=== PATIENT | male | born 1955 | race Caucasian/White ===

== ENCOUNTER → 2021-01-30 08:26 | Outpatient (CLI) | payer OTHER, SELFPAY ==
[2021-01-31 04:00] LABS: SARS-CoV-2 RNA PCR Positive
== END ==
PROVIDERS: PCP Family Medicine; Visit Provider Family Medicine
DX: U07.1 COVID-19 (principal); R05 Cough
CPT/HCPCS: C9803; U0003; U0005

== ENCOUNTER 2023-07-27 00:20 | Day surgery (SDC) | payer MEDICARE, OTHER, SELFPAY ==
[2023-07-04 11:08] VITALS: BMI 29.3
--- NOTE | 2023-07-25 12:10 | SUR.PREOP ---
Patient called regarding upcoming procedure. Reviewed preop instructions, appointment times, and procedure prep.
--- NOTE | 2023-07-26 16:28 | PM.HPGS ---
History of Present Illness History of Present Illness Consent: Risks, benefits, and alternatives have been discussed and questions answered. Patient agrees to proceed with procedure. Chief complaint: Family history colon cancer Narrative: Kishore Blue is a 68 year old male Referred for colon cancer screening. He has a family history of colon cancer Review of Systems Review of Systems: All systems reviewed & are unremarkable except as noted in HPI and below PMFSH Past Medical History Medical History Anemia, iron deficiency Anxiety Depression Gastro-esophageal reflux disease without esophagitis IFG (impaired fasting glucose) KATTY (obstructive sleep apnea) Pure hypercholesterolemia, unspecified Surgical History Surgical History H/O right wrist surgery S/P hip arthroscopy left Social History Social History Smoking status: Former smoker Tobacco type: smokeless tobacco Smokeless tobacco user: chewing tobacco Second hand tobacco smoke exposure: No Alcohol intake: current Drinks per week: 4 Alcohol use details: occasional Substance use: never Substance use type: does not use Living arrangements: with family Occupation/Education: occupation Gender identity (if verbalized by the patient): Male Spiritual care concerns: No Meds Home Medications and Allergies Home Medications Medication Instructions Recorded Confirmed Type ferrous sulfate 325 mg (65 mg 325 mg PO DAILY 04/26/19 07/04/23 History iron) tablet (iron) krill oil 350 mg-om-3 90 mg-dha 24 1 cap PO DAILY 04/26/19 07/04/23 History mg-epa 50 mg-phospholipids capsule sertraline 100 mg tablet (Zoloft) 100 mg PO DAILY #90 tabs 12/22/21 07/04/23 Rx Lactobacillus 1 cap PO DAILY 07/04/23 07/04/23 History acidophilus-Bifidobac.animalis 2.5 billion cell capsule (Daily Probiotic) atorvastatin 20 mg tablet 20 mg PO DAILY 07/04/23 07/04/23 History cholecalciferol (vitamin D3) 25 25 mcg PO DAILY 07/04/23 07/04/23 History mcg (1,000 unit) tablet (Vitamin D3) mecobalamin (vitamin B12) 1,000 1,000 mcg PO DAILY 07/04/23 07/04/23 History mcg chewable tablet pqnjbuin-wjwqevas-fbzqc acid 400 1 tablet PO DAILY 07/04/23 07/04/23 History mcg-vit K 20 mcg-lycop 300 mcg tablet zinc gluconate-vitamin C 6.4 mg-60 1 tablet PO DAILY 07/04/23 07/04/23 History mg chewable tablet Allergies Allergy/AdvReac Type Severity Reaction Status Date / Time No Known Allergies Allergy Verified 07/04/23 11:08 Exam Const: General: alert Orientation/consciousness: patient oriented x3 Resp: Auscultation: clear to auscultation bilaterally Cardio: Rhythm: regular rhythm GI: GI Palp: Yes Soft to palpation and No Tenderness to palpation present (GI) Neuro: General: patient oriented x3 Assessment and Plan Assessment and plan (1) Colon cancer screening: Code(s): Z12.11 - Encounter for screening for malignant neoplasm of colon Status: Acute Assessment and Plan: Colonoscopy with possible biopsy or polypectomy or cautery or injection of substances.
[2023-07-27 09:54] VITALS: BP 139/81; PULSE 68; RESP 18; TEMP 36.5; O2SAT 97
[2023-07-27] MEDS: LACTATED RINGERS 1,000 ML 150 ML IV CONT (10:06)
--- NOTE | 2023-07-27 10:27 | WPDANESEPPF ---
Anes - Initial Pre Proc Eval Procedure: Operation Date: 07/27/23 11:00 Proposed Procedures p Colonoscopy - Jeff Deluca MD Date/Time: 07/27/23 10:27 Surgeon: Jeff Deluca MD Pre Op Diagnosis: Family history colon cancer Patient Data Age: 68 Gender: M Height: 1.8 m Weight: 95.5 kg Last Vital Signs Temp 97.7 F 07/27/23 09:54 Pulse 68 07/27/23 09:54 Resp 18 07/27/23 09:54 BP 139/81 07/27/23 09:54 Pulse Ox 97 07/27/23 09:54 O2 Del Method Room Air 07/27/23 09:54 Allergies Allergy/AdvReac Type Severity Reaction Status Date / Time No Known Allergies Allergy Verified 07/04/23 11:08 Home Medications Medication Instructions Recorded Confirmed Type ferrous sulfate 325 mg (65 mg 325 mg PO DAILY 04/26/19 07/04/23 History iron) tablet (iron) krill oil 350 mg-om-3 90 mg-dha 24 1 cap PO DAILY 04/26/19 07/04/23 History mg-epa 50 mg-phospholipids capsule sertraline 100 mg tablet (Zoloft) 100 mg PO DAILY #90 tabs 12/22/21 07/04/23 Rx Lactobacillus 1 cap PO DAILY 07/04/23 07/04/23 History acidophilus-Bifidobac.animalis 2.5 billion cell capsule (Daily Probiotic) atorvastatin 20 mg tablet 20 mg PO DAILY 07/04/23 07/04/23 History cholecalciferol (vitamin D3) 25 25 mcg PO DAILY 07/04/23 07/04/23 History mcg (1,000 unit) tablet (Vitamin D3) mecobalamin (vitamin B12) 1,000 1,000 mcg PO DAILY 07/04/23 07/04/23 History mcg chewable tablet vmzglryh-zozdrgdd-mxhdr acid 400 1 tablet PO DAILY 07/04/23 07/04/23 History mcg-vit K 20 mcg-lycop 300 mcg tablet zinc gluconate-vitamin C 6.4 mg-60 1 tablet PO DAILY 07/04/23 07/04/23 History mg chewable tablet Patient hx anesthesia problems: none Family hx anesthesia problems: none Results Review: All pre-operative results and documents have been reviewed as part of the pre-operative evaluation. PMFSH Past Medical History Medical History (Updated 07/26/23 @ 16:28 by Jeff Deluca MD) Anemia, iron deficiency Anxiety Depression Gastro-esophageal reflux disease without esophagitis IFG (impaired fasting glucose) KATTY (obstructive sleep apnea) Pure hypercholesterolemia, unspecified Surgical History Surgical History (Updated 11/19/20 @ 07:53 by Dayana Johnston PA-C) H/O right wrist surgery S/P hip arthroscopy left Social History Social History Smoking status: Former smoker Tobacco type: smokeless tobacco Smokeless tobacco user: chewing tobacco Second hand tobacco smoke exposure: No Alcohol intake: current Drinks per week: 4 Alcohol use details: occasional Substance use: never Substance use type: does not use Living arrangements: with family Occupation/Education: occupation Gender identity (if verbalized by the patient): Male Spiritual care concerns: No Anes - Eval Final PreProcedure Day of Procedure 07/27/23 10:27 Patient weight: normal Heart: regular rate and rhythm Lungs: clear to auscultation Airway: Mallampati scale Neurological: alert and oriented Last oral intake: >/= 8 hours ASA classification: III Emergent: no Anesthetic plan: proceed Anesthesia type and monitoring: general GIVS and standard monitoring Results Review: All pre-operative results and documents have been reviewed as part of the pre-operative evaluation. Informed Consent: The patient's anesthetic plan and its attendant risks and benefits were discussed with the patient/family/POA. Questions were solicited and answers provided to the satisfaction of the patient/family/POA.
[2023-07-27 11:36] VITALS: BP 87/51; PULSE 69; RESP 18; O2SAT 95
[2023-07-27 11:46] VITALS: BP 95/57; PULSE 65; RESP 18; O2SAT 97
[2023-07-27 11:54] VITALS: BP 105/59; PULSE 59; RESP 18; O2SAT 98
== END 2023-07-27 12:06 | disposition home or self-care (01) ==
PROVIDERS: PCP Family Medicine; Visit Provider Internal Medicine Gastroenterology
PROC: 0DJD8ZZ Inspection of Lower Intestinal Tract, Via Natural or Artificial Opening Endoscopic (ICD-10-PCS; CPT 45378; principal; 2023-07-27 11:00)
DX: Z12.11 Encounter for screening for malignant neoplasm of colon (principal); D12.2 Benign neoplasm of ascending colon; K64.8 Other hemorrhoids; K57.30 Diverticulosis of large intestine without perforation or abscess without bleeding; D50.9 Iron deficiency anemia, unspecified; F41.9 Anxiety disorder, unspecified; F32.A Depression, unspecified; K21.9 Gastro-esophageal reflux disease without esophagitis; G47.33 Obstructive sleep apnea (adult) (pediatric); E78.00 Pure hypercholesterolemia, unspecified; R73.01 Impaired fasting glucose; F17.220 Nicotine dependence, chewing tobacco, uncomplicated; Z98.890 Other specified postprocedural states; Z80.0 Family history of malignant neoplasm of digestive organs
CPT/HCPCS: 45380; 88305; J2001; J2704; J7120